=== PATIENT | female | born 1985 | race Caucasian/White ===

== ENCOUNTER 2021-05-11 11:13 | Emergency (ER) | payer OTHER ==
[~2021-05-11] VITALS: Ht 167.6 cm; Wt 56.7 kg
[2021-05-11 11:18] VITALS: BP 170/105
[2021-05-11] MEDS ORDERED: MOBIC7.5 MG PO (12:53)
== END 2021-05-11 12:45 | disposition home or self-care (01) ==
LOC: ER 11:13
DX: M79.662 Pain in left lower leg (principal); Z98.51 Tubal ligation status; Z98.890 Other specified postprocedural states